=== PATIENT | female | born 1950 | race Caucasian/White ===

== ENCOUNTER → 2020-04-19 | Outpatient (CLI) | payer MEDICARE, OTHER ==
[2020-04-19 14:31] LABS: BASOPHILS # (AUTO) 0.01 x10^3/uL (0-0.1); BASOPHILS % (AUTO) 0 % (0-1); EOSINOPHILS # (AUTO) 0.15 x10^3/uL (0-0.4); EOSINOPHILS % (AUTO) 2 % (1-7); LYMPHOCYTES # (AUTO) 1.57 x10^3/uL (1-3.4); LYMPHOCYTES % (AUTO) 24 % (22-44); MD NO; MEAN CORPUSCULAR HEMOGLOBIN 29.7 pg (27.0-34.8); MEAN CORPUSCULAR HGB CONC 32.6 g/dL (32.4-35.8); MONOCYTES # (AUTO) 0.36 x10^3/uL (0.2-0.8); MONOCYTES % (AUTO) 6 % (2-9); NEUTROPHILS # (AUTO) 4.52 x10^3/uL (1.8-6.8); NEUTROPHILS % (AUTO) 68 % (42-75); PLATELET COUNT 275 x10^3/uL (130-400); RED BLOOD COUNT 4.24 x10^6/uL (3.82-5.3); RED CELL DISTRIBUTION WIDTH 14.9 % (9.6-15.2)
[2020-04-19 14:38] LABS: INTERNATIONAL NORMALIZED RATIO 0.9 (0.93-1.1); PROTHROMBIN TIME 9.3 Seconds (9.6-11.5)
[2020-04-19 14:39] LABS: ALBUMIN 3.9 g/dL (3.4-5.0); ANION GAP 2 mmol/L (5-15); CALCIUM 9.1 mg/dL (8.5-10.1); CHLORIDE 108 mmol/L (98-107)
[2020-04-19 14:42] LABS: ALANINE AMINOTRANSFERASE 26 U/L (12-78); ALKALINE PHOSPHATASE 52 U/L (45-117); BILIRUBIN,TOTAL 0.2 mg/dL (0.2-1.0); CREATININE 0.77 mg/dL (0.55-1.02); TOTAL PROTEIN 7.4 g/dL (6.4-8.2)
== END | disposition home or self-care (01) ==
LOC: STAR 13:17
PROVIDERS: ATTEND Obstetrics & Gynecology
DX: Z01.818 Encounter for other preprocedural examination (principal); Z20.828 Contact with and (suspected) exposure to other viral communicable diseases; N90.1 Moderate vulvar dysplasia
CPT/HCPCS: 36415; 80053; 85025; 85610; 85730; 87635; 93005

== ENCOUNTER 2020-04-23 07:20 | Day surgery (SDC) | payer MEDICARE, OTHER ==
[~2020-04-23] VITALS: Ht 165.1 cm; Wt 55.5 kg
[2020-04-23] MEDS ORDERED: CHLORHEXIDINE 15 ML UDC MM STA (07:34)
[2020-04-23] MEDS ORDERED: LACTATED RINGERS 1,000 ML IV ONE (07:34)
[2020-04-23] MEDS ORDERED: CEFOTETAN PMX 2GM/50ML 50 ML IV STA (07:35)
[2020-04-23] MEDS ORDERED: FENTANYL PF 100 MCG/2ML ONE (09:26)
[2020-04-23] MEDS ORDERED: CEFAZOLIN 1,000 MG ONE (09:30)
[2020-04-23] MEDS ORDERED: ONDANSETRON 2MG/ML, 2ML ONE (09:30)
[2020-04-23] MEDS ORDERED: DEXAMETHASONE 4 MG/ML, 1ML ONE (09:30)
[2020-04-23] MEDS ORDERED: PROPOFOL 10 MG/ML, 20ML ONE (09:30)
[2020-04-23] MEDS ORDERED: SILVER SULF. CRM 1% , 25GM ONE (12:36)
[2020-04-23] MEDS ORDERED: BUPIVACAINE/PF 0.25% ONE (12:36)
[2020-04-23] MEDS ORDERED: LIDOCAINE JELLY 2%, 30GM ONE (12:36)
[2020-04-23] MEDS ORDERED: EPINEPHRINE 1 MG/ML, 1ML ONE (12:37)
[2020-04-23] MEDS ORDERED: FENTANYL PF 100 MCG/2ML IV PRN (13:30)
[2020-04-23] MEDS ORDERED: PROMETHAZINE 25 MG/ML, 1ML IVPush PRN (13:30)
[2020-04-23] MEDS ORDERED: ONDANSETRON 2MG/ML, 2ML IVPush PRN (13:30)
[2020-04-23] MEDS ORDERED: HYDROmorphone 1 MG/ML, 1ML INJ IVPush PRN (13:30)
[2020-04-23] MEDS ORDERED: ACETAMINOPHEN 325 MG TABLET PO PRN (13:30)
[2020-04-23] MEDS ORDERED: PROMETHAZINE 25 MG SUPP PR PRN (13:30)
[2020-04-23] MEDS ORDERED: OXYcodone 5 MG/5 ML ORAL.SOL UDC PO PRN (13:30)
== END 2020-04-23 15:45 | disposition home or self-care (01) ==
LOC: OUT 07:20
PROVIDERS: ATTEND Obstetrics & Gynecology
DX: N90.1 Moderate vulvar dysplasia (principal); F33.9 Major depressive disorder, recurrent, unspecified; Z87.891 Personal history of nicotine dependence; Z88.8 Allergy status to other drugs, medicaments and biological substances; Z82.49 Family history of ischemic heart disease and other diseases of the circulatory system; Z83.3 Family history of diabetes mellitus
CPT/HCPCS: 56501; J0171; J0690; J1100; J2405; J2704; J3010; J3490; J7120

== ENCOUNTER 2020-12-23 16:19 | Inpatient (IN) | payer MEDICARE, OTHER ==
[~2020-12-23] VITALS: Ht 170.2 cm; Wt 63.6 kg
--- NOTE | 2020-12-23 16:26 | NUR ---
ASSUMED CARE OF PATIENT. PATIENT CHAYO PEREZ AFTER FALLING OFF HER LADDER IN HER GARAGE. NO LOC. PT C/O RIGHT HIP/LEG PAIN. VS STDABLE. CALL LIGHT IN PLACE. GUILLERMINA MELCHOR IN ROOM. WILL CONTINUE TO MONITOR.
[2020-12-23] MEDS ORDERED: SODIUM CHLORIDE 0.9% 1,000 ML IV ONE (16:30)
[2020-12-23] MEDS ORDERED: SODIUM CHLORIDE FLUSH 10ML SYR IVF ONE (16:30)
[2020-12-23 16:48] LABS: BASOPHILS % (AUTO) 0 % (0-1); EOSINOPHILS % (AUTO) 2 % (1-7); LYMPHOCYTES % (AUTO) 8 % (22-44); MEAN CORPUSCULAR HEMOGLOBIN 29.9 pg (27.0-34.8); MEAN CORPUSCULAR HGB CONC 34.3 g/dL (32.4-35.8); MEAN PLATELET VOLUME 7.5 fL (7.4-10.4); MONOCYTES % (AUTO) 3 % (2-9); NEUTROPHILS % (AUTO) 87 % (42-75); PLATELET COUNT 231 x10^3/uL (130-400); RED BLOOD COUNT 4.42 x10^6/uL (3.82-5.3); RED CELL DISTRIBUTION WIDTH 13.7 % (9.6-15.2)
[2020-12-23 17:01] LABS: ALANINE AMINOTRANSFERASE 15 U/L (12-78); ALBUMIN 3.7 g/dL (3.4-5.0); ANION GAP 9 mmol/L (5-15); CALCIUM 8.8 mg/dL (8.5-10.1); CHLORIDE 109 mmol/L (98-107); CREATININE 0.82 mg/dL (0.55-1.02)
[2020-12-23 17:03] LABS: ALKALINE PHOSPHATASE 68 U/L (45-117); BILIRUBIN,TOTAL 0.7 mg/dL (0.2-1.0); TOTAL PROTEIN 7.1 g/dL (6.4-8.2)
--- NOTE | 2020-12-23 17:03 | NUR ---
PT IN RADIOLOGY
--- NOTE | 2020-12-23 17:16 | NUR ---
PT RESTING IN ROOM. VS STABLE. CALL LIGHT IN PLACE. NO ACUTE DISTRESS NOTED. WILL CONTINUE TO MONITOR
--- NOTE | 2020-12-23 17:43 | NUR ---
pt friend and neighbor: Mitchell [employer] [phone]
--- NOTE | 2020-12-23 17:50 | NUR ---
DR PALACIOS HAS UPDATED PATIENT
[2020-12-23] MEDS ORDERED: BUPIVACAINE/PF 0.25% INFIL STA (18:25)
[2020-12-23] MEDS ORDERED: BUPIVACAINE 0.25% ONE (18:36)
[2020-12-23] MEDS ORDERED: HYDROmorphone 1 MG/ML, 1ML INJ IV STA (18:39)
--- NOTE | 2020-12-23 18:52 | NUR ---
BEDSIDE REPORT GIVEN TO JOHANNA CABELLO
[2020-12-23] MEDS ORDERED: HYDROmorphone 1 MG/ML, 1ML INJ ONE (18:54)
--- NOTE | 2020-12-23 18:59 | NUR ---
RECEIVED REPORT FROM JOHANNA SMALLS
[2020-12-23] MEDS ORDERED: ONDANSETRON 2MG/ML, 2ML ONE (19:18)
[2020-12-23] MEDS ORDERED: ONDANSETRON 2MG/ML, 2ML IVPush ONE (19:30)
--- NOTE | 2020-12-23 20:54 | NUR ---
Pt to be admitted to SURGICAL, room 472. Report called to JOHANNA VIGIL.
[2020-12-23 21:30] VITALS: BP 129/70
[2020-12-23] MEDS ORDERED: BISACODYL 10 MG SUPP PR PRN (23:30)
[2020-12-23] MEDS ORDERED: LIDODERM 5% PATCH TD PRN (23:30)
[2020-12-24] MEDS: ONDANSETRON 2MG/ML, 2ML IVPush PRN ×2 (01:42→08:00)
[2020-12-24] MEDS: LACTATED RINGERS 1,000 ML IV SCH ×2 (01:42→16:13)
[2020-12-24 01:49] VITALS: BP 118/68
[2020-12-24] MEDS: HYDROmorphone 1 MG/ML, 1ML INJ IV PRN ×2 (03:48→08:00)
[2020-12-24 05:37] LABS: BASOPHILS % (AUTO) 0 % (0-1); EOSINOPHILS % (AUTO) 1 % (1-7); LYMPHOCYTES % (AUTO) 15 % (22-44); MEAN CORPUSCULAR HEMOGLOBIN 30.2 pg (27.0-34.8); MEAN CORPUSCULAR HGB CONC 34.6 g/dL (32.4-35.8); MEAN PLATELET VOLUME 7.4 fL (7.4-10.4); MONOCYTES % (AUTO) 7 % (2-9); NEUTROPHILS % (AUTO) 77 % (42-75); PLATELET COUNT 225 x10^3/uL (130-400); RED BLOOD COUNT 4.13 x10^6/uL (3.82-5.3); RED CELL DISTRIBUTION WIDTH 13.3 % (9.6-15.2)
[2020-12-24 05:43] LABS: PROTHROMBIN TIME 10.7 Seconds (9.6-11.5)
[2020-12-24 05:44] LABS: ANION GAP 7 mmol/L (5-15); CALCIUM 8.9 mg/dL (8.5-10.1); CHLORIDE 109 mmol/L (98-107); CREATININE 0.68 mg/dL (0.55-1.02)
[2020-12-24 07:40] VITALS: BP 171/77
[2020-12-24 08:28] VITALS: BP 156/95
[2020-12-24] MEDS ORDERED: CHLORHEXIDINE 15 ML UDC ONE (09:12)
[2020-12-24] MEDS ORDERED: CHLORHEXIDINE 15 ML UDC PO ONE (09:30)
[2020-12-24] MEDS ORDERED: FENTANYL PF 250 MCG/5ML ONE (09:37)
[2020-12-24] MEDS ORDERED: DEXAMETHASONE 4 MG/ML, 1ML ONE (10:20)
[2020-12-24] MEDS ORDERED: PROMETHAZINE 25 MG/ML, 1ML IVPush PRN ×2 (11:00→12:30)
[2020-12-24] MEDS ORDERED: MIDAZOLAM 1 MG/ML, 2ML IV PRN (11:00)
[2020-12-24] MEDS ORDERED: FENTANYL PF 100 MCG/2ML IV PRN (11:00)
[2020-12-24] MEDS ORDERED: ACETAMINOPHEN 325 MG TABLET PO PRN (11:00)
[2020-12-24] MEDS ORDERED: MEPERIDINE/PF 25MG/0.5ML IVPush PRN (11:00)
[2020-12-24] MEDS ORDERED: OXYcodone 5 MG/5 ML ORAL.SOL UDC PO PRN (11:00)
[2020-12-24] MEDS ORDERED: LABETALOL 5MG/ML, 20ML IV PRN (11:00)
[2020-12-24] MEDS ORDERED: ALBUTEROL SULFATE 2.5 MG/3 ML NPPB PRN (11:00)
[2020-12-24] MEDS ORDERED: GLYCOPYRROLATE 0.2MG/1ML, 5ML ONE (11:36)
[2020-12-24] MEDS ORDERED: PROPOFOL 10 MG/ML, 20ML ONE (11:36)
[2020-12-24] MEDS ORDERED: ROCURONIUM 10MG/ML,5ML ONE (11:36)
[2020-12-24] MEDS ORDERED: CEFAZOLIN 1,000 MG ONE (11:36)
[2020-12-24] MEDS ORDERED: ONDANSETRON 2MG/ML, 2ML ONE (11:36)
[2020-12-24] MEDS ORDERED: NEOSTIGMINE 1 MG/ML, 10ML ONE (11:36)
[2020-12-24] MEDS ORDERED: FENTANYL PF 100 MCG/2ML ONE (11:51)
[2020-12-24] MEDS ORDERED: HYDROmorphone 1 MG/ML, 1ML INJ ONE (12:05)
[2020-12-24] MEDS: HYDROmorphone 1 MG/ML, 1ML INJ IVPush PRN ×2 (12:05→12:10)
[2020-12-24] MEDS ORDERED: PROMETHAZINE 25 MG/ML, 1ML ONE (12:14)
[2020-12-24] MEDS ORDERED: CEFAZOLIN 1,000 MG IM SCH (13:00)
[2020-12-24 13:50] VITALS: BP 129/74
[2020-12-24] MEDS ORDERED: CEFAZOLIN PMX 1GM/50ML IVPB SCH (18:00)
[2020-12-24] MEDS: CEFAZOLIN PMX 1GM/50ML IVPB SCH (18:17)
[2020-12-24] MEDS ORDERED: CEFAZOLIN 1,000 MG IV SCH (18:30)
[2020-12-24 20:27] VITALS: BP 113/62
[2020-12-24 23:32] VITALS: BP 126/69
[2020-12-25] MEDS: MELATONIN 5 MG TABLET PO PRN ×2 (02:35→22:08)
[2020-12-25] MEDS: ACETAMINOPHEN 325 MG TABLET PO PRN ×2 (02:41→22:08)
[2020-12-25] MEDS: CEFAZOLIN PMX 1GM/50ML IVPB SCH (03:00)
[2020-12-25] MEDS: LACTATED RINGERS 1,000 ML IV SCH ×2 (03:03→17:35)
[2020-12-25 03:11] VITALS: BP 110/62
[2020-12-25 05:23] LABS: BASOPHILS % (AUTO) 0 % (0-1); EOSINOPHILS % (AUTO) 1 % (1-7); LYMPHOCYTES % (AUTO) 18 % (22-44); MEAN CORPUSCULAR HEMOGLOBIN 30.3 pg (27.0-34.8); MEAN CORPUSCULAR HGB CONC 34.6 g/dL (32.4-35.8); MEAN PLATELET VOLUME 7.4 fL (7.4-10.4); MONOCYTES % (AUTO) 7 % (2-9); NEUTROPHILS % (AUTO) 74 % (42-75); PLATELET COUNT 213 x10^3/uL (130-400); RED BLOOD COUNT 3.45 x10^6/uL (3.82-5.3); RED CELL DISTRIBUTION WIDTH 13.8 % (9.6-15.2)
[2020-12-25 05:37] LABS: ALBUMIN 2.8 g/dL (3.4-5.0); ANION GAP 4 mmol/L (5-15); CALCIUM 8.6 mg/dL (8.5-10.1); CHLORIDE 104 mmol/L (98-107)
[2020-12-25 05:41] LABS: ALANINE AMINOTRANSFERASE 14 U/L (12-78); ALKALINE PHOSPHATASE 51 U/L (45-117); BILIRUBIN,TOTAL 0.6 mg/dL (0.2-1.0); CREATININE 0.85 mg/dL (0.55-1.02); TOTAL PROTEIN 6.1 g/dL (6.4-8.2)
[2020-12-25] MEDS: ENOXAPARIN 40 MG/0.4 ML SQ SCH (05:59)
[2020-12-25 07:13] VITALS: BP 96/57
[2020-12-25 13:23] VITALS: BP 111/61
[2020-12-25] MEDS ORDERED: POTASSIUM CHLORIDE 20 MEQ TAB.ER.PRT PO ONE (18:30)
[2020-12-25 18:45] VITALS: BP 135/74
[2020-12-26 03:43] VITALS: BP 129/71
[2020-12-26] MEDS: ENOXAPARIN 40 MG/0.4 ML SQ SCH (05:43)
[2020-12-26] MEDS: LACTATED RINGERS 1,000 ML IV SCH (05:46)
[2020-12-26 06:15] VITALS: BP 116/68
[2020-12-26 09:25] LABS: BASOPHILS % (AUTO) 1 % (0-1); EOSINOPHILS % (AUTO) 1 % (1-7); LYMPHOCYTES % (AUTO) 12 % (22-44); MEAN CORPUSCULAR HEMOGLOBIN 30.3 pg (27.0-34.8); MEAN CORPUSCULAR HGB CONC 34.6 g/dL (32.4-35.8); MEAN PLATELET VOLUME 7.6 fL (7.4-10.4); MONOCYTES % (AUTO) 5 % (2-9); NEUTROPHILS % (AUTO) 80 % (42-75); PLATELET COUNT 184 x10^3/uL (130-400); RED BLOOD COUNT 3.33 x10^6/uL (3.82-5.3); RED CELL DISTRIBUTION WIDTH 13.6 % (9.6-15.2)
[2020-12-26 09:28] LABS: ANION GAP 7 mmol/L (5-15); CALCIUM 8.5 mg/dL (8.5-10.1); CHLORIDE 106 mmol/L (98-107); CREATININE 0.58 mg/dL (0.55-1.02)
[2020-12-26] MEDS ORDERED: OXYC5TAB98 PO (09:53)
[2020-12-26 13:05] VITALS: BP 127/50
[2020-12-26] MEDS ORDERED: ASPI-963 PO (13:40)
== END 2020-12-26 13:45 | disposition home health service (06) | DRG 522 ==
LOC: ED 17:24 → EDIP 20:11 → 4NE 21:15 → DCLOUNGE 12-26 13:32
PROVIDERS: ADMIT Family Medicine; ATTEND Internal Medicine
PROC: 0SRR0JA Replacement of Right Hip Joint, Femoral Surface with Synthetic Substitute, Uncemented, Open Approach (ICD-10-PCS; principal; 2020-12-24 10:15)
DX: S72.011A Unspecified intracapsular fracture of right femur, initial encounter for closed fracture (principal); D62 Acute posthemorrhagic anemia; Z20.822 Contact with and (suspected) exposure to COVID-19; W11.XXXA Fall on and from ladder, initial encounter; Y93.89 Activity, other specified; Y92.89 Other specified places as the place of occurrence of the external cause; Y99.8 Other external cause status; Z88.5 Allergy status to narcotic agent; E87.6 Hypokalemia; F17.290 Nicotine dependence, other tobacco product, uncomplicated; Z85.44 Personal history of malignant neoplasm of other female genital organs
CPT/HCPCS: 36415; 71045; 80048; 80053; 85025; 85610; 85730; 87635; 93005; 96374; G0378; J0690; J1100; J1170; J1650; J2405; J2550; J2704; J2710; J3010; C1776; J7030; J7120